=== PATIENT | male | born 1945 | race African-American/Black ===

== ENCOUNTER 2025-02-26 18:15 | Inpatient (IN) | payer OTHER, MEDICAID ==
[~2025-02-26] VITALS: Ht 162.6 cm; Wt 54.0 kg
[2025-02-26 18:26] VITALS: O2SAT 98
[2025-02-26 20:11] LABS: BASOPHILS % 0.6 % (0.0-2.0); EOSINOPHILS % 2.5 % (0.0-5.0); HEMATOCRIT. 36.4 % (42.0-52.0); HEMOGLOBIN. 12.4 g/dL (14.0-18.0); LYMPHOCYTES % 33.2 % (20.0-50.0); MEAN PLATELET VOLUME 9.0 fl (7.4-10.4); MONOCYTES % 8.7 % (2.0-8.0); NEUTROPHILS % 55.0 % (40.0-76.0); PLATELET 257 x1000/uL (130-400); RED BLOOD CELL COUNT 4.16 mill/uL (4.7-6.1); RED CELL DISTRIBUTION WIDTH 13.5 % (11.6-14.6)
[2025-02-26] MEDS: SODIUM CHLORIDE 0.9% 1,000 ML IV ONE (20:11)
[2025-02-26] MEDS: LIDOCAINE HCL/EPINEPHRINE 1%-EPI 1:100,000 20ML VIAL INFIL ONE (20:11)
[2025-02-26] MEDS: TETANUS, DIPHTHERIA, PERTUSSIS VAC/PF 0.5ML (>10YR OLD) IM ONE (20:12)
[2025-02-26] MEDS: ACETAMINOPHEN 325MG TABLET PO ONE (20:13)
[2025-02-26 20:23] LABS: CREATININE 1.0 mg/dL (0.6-1.3); UREA NITROGEN BLOOD 8 mg/dL (9-23)
[2025-02-26 20:24] LABS: INR 1.1
[2025-02-26 20:25] LABS: ASPARTATE AMINOTRANSFERASE 25 IU/L (<34); BILIRUBIN DIRECT 0.2 mg/dL (<=3.0); TROPONIN I HIGH SENSITIVITY < 4 ng/L (3.0-53)
[2025-02-26 20:26] LABS: BILIRUBIN TOTAL 0.6 mg/dL (0.1-1.0); PROTEIN TOTAL 7.3 g/dL (6.0-8.3)
[2025-02-27] MEDS ORDERED: DOCUSATE SODIUM 100MG CAPSULE PO PRN (00:45)
[2025-02-27] MEDS ORDERED: ONDANSETRON HCL 4MG/2ML INJ IV PRN (00:45)
[2025-02-27] MEDS ORDERED: ACETAMINOPHEN 325MG TABLET PO PRN (00:45)
[2025-02-27] MEDS ORDERED: GUAIFENESIN 200MG/10ML SUGAR FREE UDC PO PRN (00:45)
[2025-02-27] MEDS ORDERED: IPRATROPIUM/ALBUTEROL 0.5-3(2.5)MG/3ML NEB HHN PRN (00:45)
[2025-02-27] MEDS ORDERED: KETOROLAC 15MG/ML VIAL IV PRN (01:00)
[2025-02-27] MEDS ORDERED: DEXTROSE 50% WATER 50ML SYRINGE IV PRN (01:00)
[2025-02-27] MEDS ORDERED: HYDRALAZINE 20MG/ML VIAL IV PRN (01:00)
[2025-02-27] MEDS: POTASSIUM CHLORIDE 20MEQ TABLET SR PO NR (01:36)
[2025-02-27] MEDS: DICLOFENAC SODIUM 1% GEL 50GM TOP SCH (02:11)
[2025-02-27 02:23] VITALS: O2SAT 98
[2025-02-27 02:46] VITALS: BP 123/66; PULSE 71; RESP 18; TEMP 36.8072
[2025-02-27 03:12] LABS: BASOPHILS % 0.8 % (0.0-2.0); EOSINOPHILS % 2.1 % (0.0-5.0); HEMATOCRIT. 36.0 % (42.0-52.0); HEMOGLOBIN. 12.0 g/dL (14.0-18.0); LYMPHOCYTES % 25.2 % (20.0-50.0); MEAN PLATELET VOLUME 8.6 fl (7.4-10.4); MONOCYTES % 10.8 % (2.0-8.0); NEUTROPHILS % 61.1 % (40.0-76.0); PLATELET 209 x1000/uL (130-400); RED BLOOD CELL COUNT 4.14 mill/uL (4.7-6.1); RED CELL DISTRIBUTION WIDTH 13.3 % (11.6-14.6)
[2025-02-27 03:55] LABS: CLARITY URINE CLEAR (CLEAR); COLOR URINE YELLOW (YELLOW); GLUCOSE URINE 3+ (NEGATIVE); KETONES URINE NEGATIVE (NEGATIVE); LEUKOCYTE ESTERASE URINE NEGATIVE (NEGATIVE); NITRITE URINE NEGATIVE (NEGATIVE); OCCULT BLOOD URINE NEGATIVE (NEGATIVE); PH URINE 7.0 (4.5-8.0); PROTEIN URINE NEGATIVE (NEGATIVE); SPECIFIC GRAVITY URINE 1.016 (1.005-1.030); UROBILINOGEN URINE 0.2 E.U./dL (0.2-1.0)
[2025-02-27 04:00] LABS: *AMPHETAMINES SCREEN URINE NEGATIVE (NEGATIVE)
[2025-02-27 04:01] LABS: *BARBITURATES SCREEN URINE NEGATIVE (NEGATIVE); *BENZODIAZEPINES SCREEN URINE NEGATIVE (NEGATIVE); *COCAINE SCREEN URINE NEGATIVE (NEGATIVE); CANNABINOID URINE SCREEN NEGATIVE (NEGATIVE); ECSTASY MDMA SCREEN URINE NEGATIVE (NEGATIVE); METHADONE URINE SCREEN NEGATIVE (NEGATIVE); OPIATES URINE SCREEN NEGATIVE (NEGATIVE); PHENCYCLIDINE URINE SCREEN NEGATIVE (NEGATIVE)
[2025-02-27 04:08] LABS: CREATININE 0.9 mg/dL (0.6-1.3)
[2025-02-27 04:09] LABS: UREA NITROGEN BLOOD 9 mg/dL (9-23)
[2025-02-27 04:11] LABS: PHOSPHORUS 3.1 mg/dL (2.5-4.9)
[2025-02-27 04:12] LABS: FOLIC ACID (FOLATE) SERUM 10.13 ng/mL (>5.38); VITAMIN B12 SERUM 825 pg/mL (211-911)
[2025-02-27 04:13] LABS: T4 FREE 1.24 ng/dL (0.89-1.76)
[2025-02-27 04:40] LABS: TROPONIN I HIGH SENSITIVITY < 4 ng/L (3.0-53)
[2025-02-27 05:31] LABS: RBC URINE NONE SEEN /hpf (0-2); SQUAMOUS EPITHELIAL CELL URINE RARE /lpf (RARE/1+); WBC URINE 0-2 /hpf (0-2)
[2025-02-27 05:32] LABS: BACTERIA URINE NONE SEEN
[2025-02-27] MEDS ORDERED: METF-1547 PO (05:32)
[2025-02-27] MEDS ORDERED: METF-1150 MT (05:33)
[2025-02-27] MEDS ORDERED: PANTOPRAZOLE 40MG DR TABLET PO SCH (07:40)
[2025-02-27] MEDS: BLOOD SUGAR DIAGNOSTIC STRIP TEST SCH (07:40)
[2025-02-27] MEDS ORDERED: INSULIN LISPRO 100 UNITS/ML SUBCUT SCH (08:10)
[2025-02-27] MEDS: EMPAGLIFLOZIN 25MG TABLET PO SCH (09:34)
[2025-02-27] MEDS: AMLODIPINE 5MG TABLET PO SCH (09:34)
[2025-02-27] MEDS: FERROUS SULFATE 325MG TABLET PO SCH (09:34)
[2025-02-27 09:35] VITALS: PULSE 71
[2025-02-27] MEDS: TAMSULOSIN HCL 0.4MG SR CAPSULE PO SCH (09:35)
[2025-02-27 14:46] VITALS: TEMP 98.4
[2025-02-27] MEDS: ACETAMINOPHEN 325MG TABLET PO PRN (14:46)
== END 2025-02-27 16:15 | disposition left against medical advice (07) | DRG 125 ==
LOC: ER 18:15 → 7WST 23:02 → EDBEDREQTM 23:06 → EDBEDREQ 23:06 → ENRESERV 02-27 01:52
PROVIDERS: ADMIT Internal Medicine; ATTEND Internal Medicine
PROC: 3E0234Z Introduction of Serum, Toxoid and Vaccine into Muscle, Percutaneous Approach (ICD-10-PCS; principal; 2025-02-26)
DX: S01.111A Laceration without foreign body of right eyelid and periocular area, initial encounter (principal); D64.9 Anemia, unspecified; E11.9 Type 2 diabetes mellitus without complications; I10 Essential (primary) hypertension; E87.6 Hypokalemia; I44.0 Atrioventricular block, first degree; N40.0 Benign prostatic hyperplasia without lower urinary tract symptoms; W01.0XXA Fall on same level from slipping, tripping and stumbling without subsequent striking against object, initial encounter; Z79.84 Long term (current) use of oral hypoglycemic drugs; Z23 Encounter for immunization; Y93.89 Activity, other specified; Y92.89 Other specified places as the place of occurrence of the external cause; Y99.8 Other external cause status
CPT/HCPCS: 12011; 36415; 71045; 73560; 73610; 73630; 80048; 80076; 80305; 80320; 81003; 82550; 82607; 82728; 82746; 82962; 83036; 83540; 83550; 83735; 83880; 84100; 84153; 84439; 84443; 84484; 85025; 85044; 86850; 86900; 90715; 93005; 96360; 96361; 96372; 99285; J2004; J7030; G0480